=== PATIENT | male | born 1995 ===

== ENCOUNTER 2018-12-16 08:38 | Emergency (ER) | payer BC ==
[2018-12-16 09:04] VITALS: BP 145/86
[2018-12-16] MEDS ORDERED: ACETAMINOPHEN 325 MG TAB PO ONE (09:45)
--- NOTE | 2018-12-16 09:45 | ER Report ---
History and Physical Time Seen By MD: 09:35 Hx. of Stated Complaint: FEVER CHILLS BODY ACHES HPI/ROS CHIEF COMPLAINT: Fever, myalgias HISTORY OF PRESENT ILLNESS: 23-year-old male presents with 2 days of fever, myalgias, mild headache. He has mild nasal drainage. He has no shortness of breath, chest pain. He has no joint pains. He has no rash. He has no known tick or environmental exposure. He is in a traveling and group with many other contacts, some of whom have viral type illness. Patient has not taken medications today for this. He is finding minimal relief with DayQuil so far. He has no active medical problems and no allergies. He does not smoke or drink. REVIEW OF SYSTEMS: Constitutional: fever and chills Eyes: No discharge. ENT: mild sore throat Cardiovascular: No chest pain, no palpitations. Respiratory: No cough, no shortness of breath. Gastrointestinal: No abdominal pain, no vomiting. Genitourinary: No hematuria. Musculoskeletal: No back pain. Skin: No rashes. Neurological: mild frontal headache, no weakness, numbness, neck stiffness. Remainder of the 14 system rev: Yes Allergies: Coded Allergies: No Known Allergies (Verified Allergy, Unknown, 12/16/18) Home Meds No Active Prescriptions or Reported Meds Hx Substance Use Disorder: No Hx Alcohol Use: No Constitutional Vital Sign - Last 24 Hours 12/16/18 12/16/18 12/16/18 12/16/18 08:38 08:51 09:04 09:38 Temp 100.0 Pulse 99 110 99 Resp 16 B/P (MAP) 145/86 (105) 145/86 Pulse Ox 93 97 O2 Delivery Room Air 12/16/18 12/16/18 12/16/18 10:08 10:36 10:38 Temp 101.5 101.5 Pulse 107 Pulse Ox 94 Physical Exam General Appearance: The patient is alert, has no immediate need for airway protection and no signs of toxicity. Eyes: Pupils equal and round no pallor or injection. ENT, Mouth: Mucous membranes are moist. OP wnl. No cervical lad Respiratory: There are no retractions, lungs are clear to auscultation. Cardiovascular: tachycardia no m/r/g Gastrointestinal: Abdomen is soft and non tender, no masses, bowel sounds normal. Neurological: alert, moves all ext Skin: Warm and dry, no rashes. Musculoskeletal: Neck is supple non tender. Extremities are nontender, nonswollen and have full range of motion. DIFFERENTIAL DIAGNOSIS: After history and physical exam differential diagnosis was considered for adult fever including but not limited to viral syndromes including influenza, urinary tract infection, pneumonia and sepsis. Medical Decision Making Data Points Laboratory Serology Test 12/16/18 09:46 Influenza Virus Type A (PCR) Negative (NEGATIVE) Influenza Virus Type B (PCR) Negative (NEGATIVE) ED Course/Re-evaluation ED Course constellation of symptoms c/w viral illness without concerning features. Flu neg; has many close contacts so will give precautions. Decision to Disposition Date: Dec 16, 2018 Decision to Disposition Time: 10:35 Depart Departure Latest Vital Signs Vital Signs Date Time Temp Pulse Resp B/P (MAP) Pulse Ox O2 Delivery O2 Flow Rate FiO2 12/16/18 10:38 101.5 12/16/18 10:08 107 94 12/16/18 09:04 16 145/86 Room Air Impression: Primary Impression: Febrile illness, acute Condition: Improved Disposition: HOME OR SELF-CARE New Scripts No Active Prescriptions or Reported Meds Patient Instructions: Fever in Adults (ED) Additional Instructions: I recommend ibuprofen 600-800mg every 8 hours and tylenol 650mg every 4-6 hours for discomfort/fever. Keep hydrated as we discussed. As your virus can be transmitted to others, use mask as much as possible and wash hands frequently. Return if feeling worse or for any concerns. BRADLEY RAM MD Dec 16, 2018 09:45
== END 2018-12-16 10:50 | disposition home or self-care (01) ==
LOC: ER 09:54
DX: R50.9 Fever, unspecified (principal)
CPT/HCPCS: 87502; 99283